=== PATIENT | male | born 1985 | race Caucasian/White ===

== ENCOUNTER → 2020-06-19 11:00 | Outpatient (BNVA) | payer BC, SELFPAY | PROVIDERS: Visit Provider Nurse Practitioner Family | DX: R50.9 Fever, unspecified (principal); Z11.59 Encounter for screening for other viral diseases | CPT/HCPCS: 87635 ==

== ENCOUNTER → 2020-10-28 11:38 | Outpatient (BNVA) | payer BC, OTHER, SELFPAY | PROVIDERS: Visit Provider Family Medicine | DX: R50.9 Fever, unspecified (principal); J06.9 Acute upper respiratory infection, unspecified | CPT/HCPCS: 87400; 87635 ==

== ENCOUNTER 2022-10-06 11:34 | Emergency (ER) | payer MEDICAID, SELFPAY ==
[2022-10-06 11:57] VITALS: BP 150/85; PULSE 98; RESP 16; TEMP 36.8; O2SAT 98
--- NOTE | 2022-10-06 12:34 | XRR_ITS ---
PROCEDURE INFORMATION: Exam: XR Left Ribs with PA Chest Exam date and time: 10/06/2022 12:41 PM Age: 37 years old Clinical indication: Injury or trauma; Fall; Rib area, left side; Blunt trauma; Additional info: Left rib pain after fall TECHNIQUE: Imaging protocol: Radiologic exam of the Left ribs with PA chest. Views: 3 views COMPARISON: No relevant prior studies available. FINDINGS: Lungs: Small indistinct nodular density projecting over the left lung base nonspecific but possibly due to prior granulomatous disease. Remaining lung castillo are clear. Pleural spaces: Unremarkable. No pleural effusion. No pneumothorax. Heart/Mediastinum: Unremarkable. No cardiomegaly. Bones/joints: No displaced rib fractures detected. XR/XR ribs LT mn 3V w CXR1V [id number] IMPRESSION: 1. Negative left rib series. 2. Small indistinct nodular density left lung base, difficult to further characterize. Consider repeat chest exam in 3 months to document stability.
--- NOTE | 2022-10-06 12:34 | XRR_ITS ---
PROCEDURE INFORMATION: Exam: XR Thoracic Spine Exam date and time: 10/06/2022 12:41 PM Age: 37 years old Clinical indication: Pain and injury or trauma; Fall; Blunt trauma (contusions or hematomas); Pain in thoracic spine; Additional info: Mid back pain after fall TECHNIQUE: Imaging protocol: Radiologic exam of the thoracic spine. Views: 3 views. COMPARISON: No relevant prior studies available. FINDINGS: Bones/joints: Curvature and alignment is unremarkable. No fracture or spondylolisthesis. Pedicles are intact. Soft tissues: Paraspinal soft tissues are unremarkable. XR/XR thoracic spine 3V* [id number] IMPRESSION: Normal thoracic spine.
--- NOTE | 2022-10-06 12:36 | W.ED.BACK ---
HPI - Back Pain/Injury General: Chief Complaint: Back Pain/Injury Stated Complaint: Middle upper back pain Time Seen by Provider: 10/06/22 12:04 History of Present Illness: Patient is a 37-year-old male comes to the ED with left rib pain and mid back pain. Patient states that approximately 12 days ago he fell and his left lateral ribs and thoracic back hit a pipe. He went and saw PCP back on September 26 to get checked out and they told him he had a rib contusion and discharged him home with a muscle relaxer. Patient says since injury he is not having any improvement in his left rib and mid back pain. He has been taking [id number] Tylenol and Motrin to help with pain. Pain worsens with certain movements of torso. Associated symptoms: Deny abdominal pain, chills, dysuria, fatigue, fever(s), hematuria, nausea or vomiting Review of Systems Const: Denies: fever(s), chills or fatigue Eyes: Denies: change in vision or eye discomfort ENMT: Denies: throat pain, odynophagia, nasal discharge or nasal congestion Card: Denies: chest pain, palpitations, edema, swelling of feet/ankles, dyspnea on exertion or orthopnea Resp: Denies: dyspnea, productive cough or non-productive cough GI: Denies: abdominal pain, nausea, vomiting, diarrhea, constipation or hematochezia : Denies: flank pain, difficulty urinating, dysuria or hematuria Musc: Reports: back pain and other (Left rib pain); Denies: neck pain or extremity swelling Skin/Breast: Denies: rash or new lesions Neuro: Denies: headache(s), numbness in extremities or weakness in extremities PFS ED PFSH: Medical History No pertinent family history Surgical History No pertinent past surgical history Social History Smoking and tobacco status: never smoked Alcohol intake: current Alcohol intake frequency: holidays/special occasions only Physical Exam Const: COMMON NORMALS: no acute distress, patient oriented x3 and alert GENERAL APPEARANCE: cooperative and comfortable HENMT: COMMON NORMALS: normocephalic HEAD & SCALP: normocephalic MOUTH: Normal oral and palatal mucosa present THROAT: posterior oropharynx normal and uvula midline Neck/C-Spine: COMMON NORMALS: supple GENERAL: Yes normal visual inspection Chest: CHEST: Yes tenderness rib left mid-axillary line involving the 5th rib and involving the 6th rib Resp: COMMON NORMALS: normal respiratory effort, No retractions, No use of accessory muscles and clear to auscultation bilaterally AUSCULTATION: clear to auscultation bilaterally Cardio: COMMON NORMALS: regular rate, regular rhythm, S1 normal heart sound present, S2 normal heart sound present, No gallops present (Cardio), No clicks present (Cardio), No murmurs present (Cardio) and Peripheral pulses 2+ throughout RATE: regular rate RHYTHM: regular rhythm HEART SOUNDS: S1 normal heart sound present and S2 normal heart sound present PERIPHERAL PULSES: Peripheral pulses 2+ throughout GI: COMMON NORMALS: Normal to inspection, nondistended, normoactive bowel sounds present, Soft to palpation, non-tender and no masses PALPATION: Yes Soft to palpation : COMMON NORMALS: Yes no CVA tenderness BLADDER/KIDNEY EXAM: Yes no CVA tenderness Back/Pelvis: COMMON NORMALS: no CVA tenderness THORACIC SPINE/UPPER BACK: Yes pain with ROM, Yes thoracic spinal tenderness T-spine tenderness location: T5, T6 and T7 and Yes paraspinal muscle tenderness Thoracic paraspinal muscle tenderness: bilateral Bilateral thoracic paraspinal muscle tenderness: T5, T6 and T7 Extremity: COMMON NORMALS: normal to inspection Neuro: COMMON NORMALS: patient oriented x3 SENSORIUM/ORIENTATION: Yes alert GAIT: Yes Normal gait present Skin: GENERAL SKIN EXAM: dry skin Course Vital Signs: Vital signs: Vital Signs Temperature 98.2 F 10/06/22 11:57 Pulse Rate 98 10/06/22 11:57 Respiratory Rate 16 10/06/22 11:57 Blood Pressure 150/85 10/06/22 11:57 Pulse Oximetry 98 10/06/22 11:57 MDM - Back Pain/Injury Medical Decision Making Patient is a 37-year-old male comes to the ED with left rib pain and mid back pain. Patient states that approximately 12 days ago he fell and his left lateral ribs and thoracic back hit a pipe. Vitals are stable. Patient has some left lateral fifth and sixth rib tenderness and T5-T6 and T7 paraspinal and thoracic spinal tenderness noted. Rest of exam is benign. He appears nontoxic and in no acute distress. Rib x-ray showed no acute fractures noted. It did note a small indistinct nodular density in left lung base and recommended a repeat chest x-ray in 3 months to document stability. Thoracic spine x-ray showed no acute fractures. Patient was given a dose of Toradol here in the ED to help with pain. He was stable for discharge home and diagnosed with back pain due to injury and incidental lung nodule finding. I told patient he needs to follow-up with his PCP to get a repeat chest x-ray to monitor left lung nodule. Return to ED precautions given. Patient understood and agreed with plan. Labs Radiology Impressions Ribs X-Ray 10/06/22 12:34 IMPRESSION: 1. Negative left rib series. 2. Small indistinct nodular density left lung base, difficult to further characterize. Consider repeat chest exam in 3 months to document stability. Thoracic Spine X-Ray 10/06/22 12:34 IMPRESSION: Normal thoracic spine. Discharge Plan Discharge Patient Disposition: Home Clinical Impression: Back pain due to injury, Incidental lung nodule Condition: Stable Prescriptions: No Action ibuprofen 800 mg tablet 800 mg PO Q8H 10 Days Qty: 30 0RF triamcinolone acetonide 0.1 % cream 1 applic topical TID Qty: 15 1RF cyclobenzaprine 10 mg tablet 10 mg PO TID PRN (Reason: muscle spasm) Qty: 60 0RF Discharge Orders: Discharge ED (Routine); Ordered 10/06/22 Ordered By: Santino Landon Discharge Diet: Regular Discharge Activity: Increase activity as tolerated Patient Instructions: Back Pain (ED) Activity Restrictions/Additional Instructions: Follow-up with medical provider as directed. Follow-up with your PCP in 3 months to have a repeat chest x-ray to check on small left lung nodule. Take medications as prescribed. Return to the ER or your medical provider if condition worsens. Please read and understand discharge instructions. Thank you for choosing [facility] for your healthcare needs today. Please realize this is an emergency room and that we are providing you with a medical screening exam and this may not be complete and all inclusive of all the testing and or work up that you may need to determine your ailment or severity of your illness. It is very important that you follow up as instructed or that you return to the Emergency Department should you have concerns or if your condition changes or worsens in any way. Coding Level of Care Code ED [employer] for Chg Fwd Exam Comprehensive
[2022-10-06] MEDS: ketorolac 60 mg/2 mL INJ IM (14:03)
== END 2022-10-06 14:05 | disposition home or self-care (01) ==
PROVIDERS: Emergency Provider Physician Assistant
DX: S29.9XXA Unspecified injury of thorax, initial encounter (principal); R91.1 Solitary pulmonary nodule; W19.XXXA Unspecified fall, initial encounter
CPT/HCPCS: 71101; 72072; 96372; 99284; J1885

== ENCOUNTER 2022-12-02 10:22 | Outpatient (CLI) | payer MEDICAID, SELFPAY ==
--- NOTE | 2022-12-02 10:31 | MR_ITS ---
WS: [id number] MRI LUMBAR SPINE NONCONTRAST HISTORY: ACUTE LOW BACK PAIN DUE TO TRAUMA COMPARISON: None available. TECHNIQUE: Sagittal and axial multisequence imaging is submitted. Quality is limited by large body habitus. Normal lumbar alignment with no compression fractures or marrow edema. Disc spaces and vertebral body heights are well-preserved. Conus terminates normally at L1-2 disc level. L1-L2: Normal. L2-L3: Mild ligamentum flavum and facet arthritis. No high-grade stenosis. L3-L4: Mild central canal narrowing and foraminal stenosis. There is disc material abutting the exiti ng L3 nerve roots. L4-L5: Mild annular disc bulging with ligamentum flavum and facet arthritis. Mild central, bilateral subarticular recess and foraminal stenosis. L5-S1: Mild disc bulging. Very mild RIGHT foraminal encroachment. Paravertebral soft tissues are negative. MR/MR lumbar spine wo con* [id number] IMPRESSION: 1. No acute fractures. 2. 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 Probably due to short pedicles. 3. Mild central and foraminal stenosis at L3-4. 4. Mild central, bilateral subarticular recess and foraminal stenosis at L4-5. 5. Very mild RIGHT foraminal encroachment at L5-S1.
--- NOTE | 2022-12-02 10:31 | CT_ITS ---
WS: [id number] CT CHEST WITH INTRAVENOUS CONTRAST HISTORY: PLEURITIC PAIN TECHNIQUE: Contiguous 5 mm axial imaging performed on the thorax. Coronal and sagittal reformats are submitted. All CT scans at [facility] use at least one of these dose optimization techniques: automated exposure control; mA and/or kV adjustment per patient size (includes targeted exams where dose is matched to clinical indication); or iterative reconstruction. CONTRAST: Omnipaque 350; 100 mL IV. DLP: 477.17 mGy.cm COMPARISON: None available. Lungs and central airway: Lungs are well-aerated. Benign 5 mm nodule along the RIGHT major fissure. N o pneumonia. No bronchiectasis. Pleura: Normal. No pleural effusion. Heart and pericardium: Normal size heart with no pericardial effusion. Mediastinum and trish: No mediastinum or hilar adenopathy. Vessels: Normal size aortic and pulmonary artery. No coronary artery calcifications. Chest wall and lower neck: Bilateral mild gynecomastia. Upper abdomen: Negative. Osseous structures: No destructive process. CT/CT chest w con* [id number] IMPRESSION: 1. No pulmonary mass or contusion. 2. Mild gynecomastia. 3. No rib fractures or healing fractures are identified.
[2022-12-02] MEDS: iohexol 350 mg/mL 500 mL Btl (per mL) IV (10:52)
== END 2022-12-02 10:23 | disposition home or self-care (01) ==
LOC: RAD 10:24
PROVIDERS: PCP Family Medicine; Visit Provider Family Medicine
DX: R07.81 Pleurodynia (principal); M48.061 Spinal stenosis, lumbar region without neurogenic claudication; N62 Hypertrophy of breast
CPT/HCPCS: 71260; 72148; Q9967

== ENCOUNTER → 2023-04-06 14:07 | Outpatient (BNVA) | payer MEDICAID, SELFPAY | PROVIDERS: PCP Family Medicine; Referring Provider Nurse Practitioner Family; Visit Provider Orthopaedic Surgery | DX: M54.50 Low back pain, unspecified (principal); M54.6 Pain in thoracic spine; M54.2 Cervicalgia | CPT/HCPCS: 72040; 72072 ==

== ENCOUNTER 2023-04-27 08:17 | Outpatient (CLI) | payer MEDICAID, SELFPAY ==
--- NOTE | 2023-04-27 08:45 | MR_ITS ---
WS: [id number] MRI CERVICAL SPINE NONCONTRAST HISTORY: Cervical Pain COMPARISON: None available. Technique: Multiplanar, multisequence noncontrast imaging of the cervical spine. Quality of this examination is compromised by motion artifact. Normal cervical alignment with no compression fracture or significant disc space narrowing. Signal within the cervical cord is normal. Visualized posterior fossa is unremarkable. Mild ectopia of the cerebellar tonsils. No significant crowding of the foramen magnum. C2-C3: Normal. C3-C4: Normal. C4-C5: Normal. C5-C6: Mild disc bulging and facet arthritis. There may be a small central disc protrusion and this c annot be confirmed on the axial imaging due to significant motion artifact. Mild foraminal narrowing suspected. C6-C7: Mild foraminal narrowing. C7-T1: Normal. Paraspinal soft tissue are normal. MR/MR cervical spin wo con* [id number] IMPRESSION: 1. Quality of this examination is significantly compromised by motion artifact . Quality of this study is not sufficient to exclude small disc protrusions. 2. Suspect a small central disc protrusion at C5-6 and mild foraminal narrowin g.
--- NOTE | 2023-04-27 09:30 | MR_ITS ---
WS: [id number] MRI THORACIC SPINE noncontrast. HISTORY: Thoracic Pain COMPARISON: None available. TECHNIQUE: Multiplanar sequences are performed in sagittal and axial planes. Posterior thoracic alignment is normal. No acute fractures. There are small Schmorl's nodes at severa l levels including T6, T7, T8 and T9. No acute marrow edema. Very slight anterior wedging of T8. T1-2: Normal. T2-3: Mild bilateral facet arthritis. Very slight foraminal narrowing. T3-4: Mild bilateral foraminal stenosis due to facet arthritis. T4-5: Mild foraminal narrowing due to facet arthritis. T5-6: Normal. T6-7: Normal. T7-8: Very small central disc protrusion with mild bilateral foraminal stenosis. T8-9: Mild facet arthritis. T9-10: Moderate bilateral facet arthritis and mild foraminal narrowing. T10-11: Small central disc protrusion and facet arthritis. Moderate bilateral foraminal stenosis. T11-12: Proximal LEFT foraminal disc osteophyte protrusion. Moderate bilateral foraminal stenosis. MR/MR thoracic spin wo con* [id number] IMPRESSION: 1. No high-grade central stenosis. 2. Multilevel facet joint arthritis resulting in mild to moderate foraminal st enosis. Most significant foraminal stenosis at T10-11 and T11-12. 3. Small central disc protrusions at T7-8 and T10-11.
== END 2023-04-27 08:18 | disposition home or self-care (01) ==
LOC: RAD 08:19
PROVIDERS: PCP Family Medicine; Visit Provider Orthopaedic Surgery
DX: M54.2 Cervicalgia (principal); M51.24 Other intervertebral disc displacement, thoracic region; M47.894 Other spondylosis, thoracic region
CPT/HCPCS: 72141; 72146